=== PATIENT | male | born 1990 | race Caucasian/White ===

== ENCOUNTER 2020-01-10 21:35 | Emergency (ER) | payer SELFPAY ==
[~2020-01-10] VITALS: Ht 195.6 cm; Wt 93.2 kg
[2020-01-10 22:29] LABS: BASO # 0.1 x10^3/uL (0.0-0.2); BASO % 1 % (0-3); EOS % 0 % (0-3); HEMATOCRIT 34.9 % (39.0-53.0); HEMOGLOBIN 11.8 g/dL (13.0-17.5); LYMPH # 1.7 x10^3/uL (1.0-4.8); LYMPH % 16 % (24-48); MEAN CORPUSCULAR HEMOGLOBIN 29 pg (25-35); MEAN CORPUSCULAR HGB CONC 34 g/dL (31-37); MEAN CORPUSCULAR VOLUME 84 fL (79-100); MONO % 9 % (0-9); NEUT % 74 % (31-73); PLATELET COUNT 259 x10^3/uL (140-400); RED BLOOD COUNT 4.15 x10^6/uL (4.30-5.70); RED CELL DISTRIBUTION WIDTH 15.5 % (11.5-14.5); WHITE BLOOD COUNT 10.7 x10^3/uL (4.0-11.0)
--- NOTE | 2020-01-10 22:31 | PHYS DOC ---
Past Medical History Past Medical History: Other Additional Past Medical Histor: AUTISM Past Surgical History: Appendectomy Smoking Status: Current Every Day Smoker Alcohol Use: Occasionally Drug Use: Methamphetamine General Adult EDM: Chief Complaint: PSYCH EVALUATION HPI: HPI: Patient is a 29 year old male who presents with psychiatric problems. Patient was dropped off here by his father after he found the patient walking around town talking to himself. He is seeking correction at another long-term. He was previously staying at [facility] but was kicked out yesterday due to failure to report on time. His father is supportive, but he says 'it does not work out for us to live together.' He is a meth user with last use on Saturday evening. He reports being on adderall as a teenager. He has never been on medications for depression or anxiety. He is not currently experiencing SI or HI. He is not currently having any pain. Review of Systems: Review of Systems: Constitutional: Denies fever or chills Eyes: Denies redness or eye pain HENT: Denies nasal congestion or sore throat Respiratory: Denies cough or shortness of breath Cardiovascular: Denies chest pain or palpitations GI: Denies abdominal pain, nausea, or vomiting : Denies dysuria or hematuria Musculoskeletal: Denies back pain or joint pain Integument: Reports rash on his right hand Neurologic: Denies headache, focal weakness or sensory changes Complete systems were reviewed and found to be within normal limits, except as documented in this note. Allergies: Allergies: Allergies Coded Allergies Type Severity Reaction Last Updated Verified No Known Drug Allergies 01/10/20 No Physical Exam: PE: Constitutional: Well developed, well nourished, no acute distress, non-toxic appearance HENT: Normocephalic, atraumatic Eyes: PERRL, EOMI, conjunctiva normal, no discharge Neck: Normal range of motion, no tenderness, supple Lungs & Thorax: No respiratory distress, equal chest rise and fall Abdomen: Soft, no tenderness Skin: Warm, dry, 3-4 scabbed skin lesions present on bilateral forearms, er ythematous rash with excoriations present on the dorsal aspect of his right hand Back: No tenderness, no CVA tenderness Extremities: No tenderness, ROM intact, no edema Neurologic: Alert and oriented X 3, normal motor function, normal sensory function, no focal deficits noted Psychologic: Affect slightly withdrawn with frequent episodes of looking down/away while being spoken too Current Patient Data: Vital Signs: Vital Signs Date Time Temp Pulse Resp B/P (MAP) Pulse Ox O2 Delivery O2 Flow Rate FiO2 01/10/20 21:38 98.3 93 12 129/60 (83) 99 Room Air 98.3 Course & Med Decision Making: Course & Med Decision Making Patient is a 29 year old male who came to seek correction at another long-term. No labs or imaging ordered due to lack of current symptoms. PAT consult for psychiatric evaluation and support in finding appropriate correction vs long-term vs rehab. Dragon Disclaimer: [email or web address] Disclaimer: This electronic medical record was generated, in whole or in part, using a voice recognition dictation system. Departure Departure Impression: Primary Impression: Depression Qualified Codes: F32.9 - Major depressive disorder, single episode, unspecified Additional Impressions: Hx of substance abuse Homelessness Disposition: 01 DC HOME SELF CARE/HOMELESS Condition: STABLE Patient Instructions: Alcohol and Drug Addiction, Finding Treatment, Depression, Adult, Egeo-oj-Edps, Substance Abuse-Brief Additional Instructions: Please call resource numbers provided to your in the Emergency Department. KENNY BATEMAN DO Jan 10, 2020 22:31
[2020-01-10 22:37] LABS: CREATININE 1.3 mg/dL (0.7-1.3); GFR 65.7; POTASSIUM 3.6 mmol/L (3.5-5.1)
[2020-01-10 22:42] LABS: ACETAMIN < 2 mcg/ml (10-30); ETHANOL < 10 mg/dL (0-10); SALIC < 2.8 mg/dL (2.8-20.0)
[2020-01-10 22:43] LABS: ALBUMIN 3.9 g/dL (3.4-5.0); ALBUMIN/GLOBULIN RATIO 1.3 (1.0-1.7); MAGNESIUM 2.2 mg/dL (1.8-2.4); TOTAL BILIRUBIN 0.4 mg/dL (0.2-1.0); TOTAL PROTEIN 6.8 g/dL (6.4-8.2)
[2020-01-11 00:15] VITALS: BP 110/58
== END 2020-01-11 00:35 | disposition home or self-care (01) ==
LOC: ER 21:35
DX: F32.9 Major depressive disorder, single episode, unspecified (principal); R21 Rash and other nonspecific skin eruption; F17.200 Nicotine dependence, unspecified, uncomplicated
CPT/HCPCS: 36415; 80053; 80329; 83735; 85025; 99285; G0480